=== PATIENT | female | born 1960 | race Caucasian/White ===

== ENCOUNTER → 2018-03-24 | Outpatient (CLI) | payer BC ==
[2018-03-24 16:53] LABS: BLOOD UREA NITROGEN 11 mg/dL (7-26); BUN/CREATININE RATIO 14 (6-25); CREATININE, SERUM 0.79 mg/dL (0.57-1.11); EST GLOMERULAR FILTRATION RATE > 60 ML/MIN (60-)
--- NOTE | 2018-03-25 08:12 | Diagnostic Imaging Report ---
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 TECHNIQUE: Multi-detector CT technology was employed. CTA Gated axial imaging of the chest, abdomen, and pelvis was performed after the administration of IV contrast. IV CONTRAST: 150 mL of Isovue-370 ORAL CONTRAST: None COMPLICATIONS: None RADIATION DOSE: Total DLP: 405.2 mGy*cm Estimated effective dose: (DLP x 0.015 x size factor) mSv CTDIvol has been reviewed. It is below the limits set by the Radiation Protocol Committee (RPC). For optimization of anatomic evaluation, multiplanar reconstruction, maximum intensity projections, and advanced 3-D off-line postprocessing were performed on a dedicated stand-alone workstation under the direct supervision of the interpreting physician. FINDINGS: Potential study limitations: None. LINES/ TUBES: None. VASCULAR WITH ADVANCED 3-D OFF-LINE POSTPROCESSING: Aortic valve morphology is trileaflet and contains no calcifications. The thoracic aorta is normal in course, caliber, and contour. Mild indentation of the isthmus without aortic coarctation, of no clinical significance. There is no acute aortic pathology, such as dissection, intramural hematoma, or contained rupture. Aortic plaques: Mild scattered atherosclerotic calcifications in the aortic arch and descending thoracic segment. The arch vessel branching pattern is conventional. All of the arch branch vessels appear widely patent in their proximal portions. Both vertebral arteries arise from the respective subclavian arteries and are patent. The abdominal aorta is normal in course, caliber, and contour. There is no acute aortic pathology . Aortic plaques: Mild scattered atherosclerotic calcification throughout the abdominal aorta. Statement Clerks Supervisor dimensions of the thoracic aorta are as follows: 2.4 x 2.0 cm at the aortic annulus 3.7 x 3.4 cm at the sinuses of Valsalva (the sinotubular junction is preserved) 3.4 cm at the mid ascending aorta 3.1 cm at the distal ascending aorta 2.7 cm at the mid transverse arch 2.5 cm at the proximal descending thoracic aorta 2.5 cm at the diaphragmatic hiatus. The abdominal aorta measures: 2.5 cm at the supramesenteric segment 2.5 cm at the mesenteric segment 1.8 cm at the renal segment 1.6 cm at the mid infrarenal segment 1.6 cm at the aortic bifurcation. The celiac axis, SMA, and JOSE J are patent. There are single renal arteries bilaterally, both of which appear patent. The pelvic arteries are normal in caliber and contour. There are no atherosclerotic changes of the pelvic arteries. 0.9 cm at the right common iliac artery 0.6 cm at the right external iliac artery 0.9 cm at the left common iliac artery 0.6 cm at the left external iliac artery CHEST: LUNGS AND AIRWAYS: Minimal subsegmental atelectasis in both lung bases and lingula. Airways are patent. PLEURA: The pleural spaces are clear.. HEART AND MEDIASTINUM: The thyroid gland is normal. No mediastinal, hilar or axillary lymphadenopathy. The main pulmonary artery is normal in size. The cardiac chambers demonstrate normal atrioventricular and ventriculoarterial concordance, and systemic and pulmonary venous return. The cardiac chambers are normal in size. The coronary arteries have normal origins and courses. There are no distinct coronary calcifications identified, though this study was not optimized for coronary artery evaluation. There is no pericardial effusion or pericardial calcifications. ABDOMEN: A 1.4 cm well-circumscribed low-attenuation cyst in the posterior right lobe of the liver on series 3, image 104 may represent a cyst or hemangioma. The gallbladder is not visualized. The pancreas and spleen appear unremarkable. The adrenal glands appear normal. Both kidneys are normal in size, shape, and density. There is no abnormal mass or hydronephrosis. PELVIS: There is no significant retroperitoneal adenopathy. No free fluid or free air within the abdomen or pelvis. The bowel appears unremarkable. Normal appendix. The urinary bladder appears normal. The uterus is mildly prominent. No adnexal masses. BONES: Unremarkable IMPRESSION: 1. Normal size of the thoracic aorta with associated mild scattered atherosclerotic calcifications. No acute aortic pathology identified. 2. Normal size of the abdominal aorta and pelvic arteries. Mild scattered atherosclerotic calcification throughout the abdominal aorta. No acute abdominal aortic pathology. 3. Normal origin of the coronary arteries without calcifications. Signed by: Dr. Shivani López M.D. on 03/25/2018 8:09 AM
== END ==
LOC: CT 15:44
PROVIDERS: ATTEND Internal Medicine Cardiovascular Disease
DX: Q82.8 Other specified congenital malformations of skin (principal); K76.89 Other specified diseases of liver
CPT/HCPCS: 36415; 71275; 74174; 82565; 84520

== ENCOUNTER → 2022-06-17 | Outpatient (CLI) | payer BC ==
[~2022-06-17] MED LIST: IOPAMIDOL 370 MG/ML 100 ML INFUS..BTL INJ ONE; SODIUM CHLORIDE 0.9% 100 ML ONE
[2022-06-17 13:58] LABS: BASOPHILS % 0.3 % (0.0-1.0); EOSINOPHILS # (AUTO) 0.2 (0.0-0.4); EOSINOPHILS % 2.9 % (0.0-6.0); HEMATOCRIT 41.9 % (34.2-44.1); HEMOGLOBIN 13.5 g/dL (12.0-16.0); LYMPHOCYTES # (AUTO) 1.6 (1.0-3.2); LYMPHOCYTES % 20.8 % (18.0-39.1); MEAN CORPUSCULAR HEMOGLOBIN 29.9 pg (28-32); MEAN CORPUSCULAR HGB CONC 32.2 g/dL (31-35); MEAN CORPUSCULAR VOLUME 92.7 fL (81-99); MONOCYTES # (AUTO) 0.4 (0.2-0.8); MONOCYTES % 5.7 % (4.4-11.3); NEUTROPHILS # (AUTO) 5.3 (2.1-6.9); NEUTROPHILS % 69.9 % (38.7-80.0); PLATELET COUNT 208 x10e3/uL (140-360); RED BLOOD COUNT 4.52 x10e6/uL (3.6-5.1); RED CELL DISTRIBUTION WIDTH 13.9 % (11.7-14.4)
[2022-06-17 14:18] LABS: ALBUMIN 3.6 g/dL (3.5-5.0); ALBUMIN/GLOBULIN RATIO 1.2 (0.8-2.0); CALCIUM 8.7 mg/dL (8.4-10.2); CHOL/HDL RATIO 3.4 (3.0-3.6); CREATININE, SERUM 0.76 mg/dL (0.57-1.11)
[2022-06-17 14:38] LABS: THYROID STIMULATING HORMONE 0.738 uIU/mL (0.350-4.940)
== END ==
LOC: CT 13:18
PROVIDERS: ATTEND Internal Medicine Cardiovascular Disease
DX: Q82.8 Other specified congenital malformations of skin (principal)
CPT/HCPCS: 36415; 71275; 74174; 80053; 80061; 84443; 85025; J7050; Q9967